=== PATIENT | female | born 1945 | race Caucasian/White ===

== ENCOUNTER → 2018-12-17 | Outpatient (CLI) | payer MEDICARE, OTHER ==
--- NOTE | 2018-12-17 10:02 | KCIC ---
MRI Brain without contrast History: Neuralgia/neuritis, burning pain of the tongue for many years now in the forehead Technique: Multiplanar, multisequential noncontrast MR imaging was performed of the brain. Comparison: None Findings: There is some motion degradation. There is no evidence of recent infarct or cytotoxic edema. Anterior size within normal limits. Cerebral volume is within normal limits. There is no significant hemosiderin deposition of the brain parenchyma.There is no significant midline shift, intraaxial mass effect, or focal abnormal extra-axial fluid collection. There are multiple scattered small foci of T2 and FLAIR hyperintense signal abnormality of the supratentorial parenchyma bilaterally, overall [id number] signal abnormality present. There is preservation of the major intracranial flow-voids at the skull base. There is minimal patchy fluid and thickening of the left mastoid air cells.The cerebellar tonsils are normal in location. There is no significant abnormality of the pineal gland. There is mild ethmoid air cell mucosal thickening greater on the left, also minimally of the frontal sinus. There is mild left maxillary sinus mucosal thickening. There has been lens surgery bilaterally. There is mild increased CSF signal of the optic nerve sheaths anteriorly bilaterally. Pituitary gland is small. There is preserved marrow signal of the clivus. Impression: 1. There is scattered T2 and FLAIR hyperintense signal abnormality of the supratentorial parenchyma bilaterally. Nonspecific findings are most commonly due to chronic microvascular ischemic disease in a patient this age. Pattern is not particularly suggestive of an inflammatory demyelinating disease and less common in a patient this age. Electronically signed by: Ko Rowley MD (12/17/2018 9:59 AM) [facility]
== END | disposition home or self-care (01) ==
LOC: KCIC MRI 09:08
PROVIDERS: ATTEND Psychiatry & Neurology Neurology with Special Qualifications in Child Neurology
DX: I67.82 Cerebral ischemia (principal); M79.2 Neuralgia and neuritis, unspecified
CPT/HCPCS: 70551

== ENCOUNTER 2021-07-04 18:09 | Emergency (ER) | payer MEDICARE, OTHER ==
[~2021-07-04] VITALS: Ht 162.6 cm; Wt 68.1 kg
--- NOTE | 2021-07-04 18:28 | PHYS DOC ---
Past Medical History Past Medical History: Anxiety, High Cholesterol General Adult HPI: HPI: Patient is a 75 year old female with history of high cholesterol, anxiety, who presents to the ED today complaining of an anxiety attack. Patient states for the last 2 to 3 weeks she has had anxiety attacks with shortness of breath. She states she has been following up with her PCP and she is currently on Xanax 0.5 mg. She states she has taken 3 doses today but she still feels anxious and SOA. Denies any chest pain, denies any headache coughing or congestion. Denies any suicidal homicidal ideations. Review of Systems: Review of Systems: Constitutional: Denies fever or chills. [] Eyes: Denies change in visual acuity. [] HENT: Denies nasal congestion or sore throat. [] Respiratory: Reports shortness of breath Cardiovascular: Denies chest pain or edema. [] GI: Denies abdominal pain, nausea, vomiting, bloody stools or diarrhea. [] : Denies dysuria. [] Musculoskeletal: Denies back pain or joint pain. [] Integument: Denies rash. [] Neurologic: Denies headache, focal weakness or sensory changes. [] Psychiatric: Reports anxiety Heart Score: C/O Chest Pain: N/A Risk Factors: Risk Factors: DM, Current or recent (<one month) smoker, HTN, HLP, family history of CAD, obesity. Risk Scores: Score 0 - 3: 2.5% MACE over next 6 weeks - Discharge Home Score 4 - 6: 20.3% MACE over next 6 weeks - Admit for Clinical Observation Score 7 - 10: 72.7% MACE over next 6 weeks - Early Invasive Strategies Physical Exam: PE: Constitutional: Well developed, well nourished, no acute distress, non-toxic appearance. [] HENT: Normocephalic, atraumatic, bilateral external ears normal, oropharynx moist, no oral exudates, nose normal. [] Eyes: PERRLA, EOMI, conjunctiva normal, no discharge. [] Neck: Normal range of motion, no tenderness, supple, no stridor. [] Cardiovascular:Heart rate regular rhythm, no murmur [] Lungs & Thorax: Bilateral breath sounds clear to auscultation [] Abdomen: Bowel sounds normal, soft, no tenderness, no masses, no pulsatile masses. [] Skin: Warm, dry, no erythema, no rash. [] Back: No tenderness, no CVA tenderness. [] Extremities: No tenderness, no cyanosis, no clubbing, ROM intact, no edema. [] Neurologic: Alert and oriented X 3, normal motor function, normal sensory function, no focal deficits noted. [] Psychologic: Affect normal, judgement normal, mood normal. [] EKG: EK interpreted by Dr. Fuller sinus rhythm heart rate 69 no STEMI Radiology/Procedures: Radiology/Procedures: [] Course & Med Decision Making: Course & Med Decision Making Pertinent Labs and Imaging studies reviewed. (See chart for details) This is a 75-year-old female patient presenting to the ED today complaining of anxiety with shortness of breath, symptoms of been going on for 3 weeks. She states she has been seen by her PCP and is on Xanax Dragon Disclaimer: Dragon Disclaimer: This electronic medical record was generated, in whole or in part, using a voice recognition dictation system. Departure Departure Impression: Primary Impression: Anxiety Additional Impression: UTI (urinary tract infection) Qualified Codes: N39.0 - Urinary tract infection, site not specified Disposition: HOME / SELF CARE / HOMELESS Condition: STABLE Referrals: NON,STAFF (PCP) Follow up with your doctor as soon as you can Patient Instructions: Anxiety and Panic Attacks, Urinary Tract Infection Additional Instructions: You were evaluated in the emergency room for anxiety. Your work-up in the emergency room is negative for any acute findings, you have a UTI. Please take the prescribed antibiotics until completed. Contact your doctor tomorrow about your anxiety. Come back to the ED at any point symptoms worsen Scripts Cephalexin (CEPHALEXIN) 500 Mg Tablet 1 TAB PO BID, #14 TAB Prov: SHERITA BYRD APRN 07/04/21 SHERITA BYRD APRN July 04, 2021 18:28
[2021-07-04 18:38] LABS: BASO # 0.1 x10^3/uL (0.0-0.2); BASO % 1 % (0-3); EOS # 0.1 x10^3/uL (0.0-0.7); EOS % 1 % (0-3); HEMOGLOBIN 11.4 g/dL (12.0-15.5); LYMPH # 2.4 x10^3/uL (1.0-4.8); LYMPH % 33 % (24-48); MEAN CORPUSCULAR HEMOGLOBIN 29 pg (25-35); MEAN CORPUSCULAR HGB CONC 33 g/dL (31-37); MEAN CORPUSCULAR VOLUME 86 fL (79-100); MONO # 0.4 x10^3/uL (0.0-1.1); MONO % 5 % (0-9); NEUT # 4.3 x10^3/uL (1.8-7.7); NEUT % 60 % (31-73); PLATELET COUNT 291 x10^3/uL (140-400); RED BLOOD COUNT 3.96 x10^6/uL (3.50-5.40); RED CELL DISTRIBUTION WIDTH 13.7 % (11.5-14.5); WHITE BLOOD COUNT 7.2 x10^3/uL (4.0-11.0)
[2021-07-04 18:59] LABS: CALCIUM 9.6 mg/dL (8.5-10.1); CREATININE 1.2 mg/dL (0.6-1.0); GFR 43.6; POTASSIUM 4.2 mmol/L (3.5-5.1)
[2021-07-04 19:05] LABS: ALBUMIN/GLOBULIN RATIO 1.2 (1.0-1.7); MAGNESIUM 1.9 mg/dL (1.8-2.4); TOTAL BILIRUBIN 0.3 mg/dL (0.2-1.0); TOTAL PROTEIN 7.3 g/dL (6.4-8.2)
--- NOTE | 2021-07-04 19:58 | RAD ---
Exam: Chest one view INDICATION: Short of air, pain TECHNIQUE: Frontal view of the chest Comparisons: None FINDINGS: Heart is mildly enlarged pulmonary vessels are within normal limits. The lung and pleural spaces are clear. IMPRESSION: No acute cardiopulmonary process. Electronically signed by: Stephanie Lion MD (07/04/2021 7:55 PM) [facility]
[2021-07-04 20:51] LABS: BARBITURATES NEG (NEG); BENZODIAZEPINES POS (NEG); CANNABINOIDS NEG (NEG); COCAINE NEG (NEG); METHADONE NEG (NEG); OPIATES POS (NEG); PHENCYCLIDINE NEG (NEG)
[2021-07-04 20:53] LABS: AMPHETAMINE/METHAMPHETAMINE NEG (NEG)
[2021-07-04 21:00] LABS: BACTERIA,URINE FEW /HPF (0-FEW); RBC,URINE 0 /HPF (0-2)
[2021-07-04 21:45] VITALS: BP 133/63
[2021-07-04] MEDS ORDERED: CEPH500T PO (22:05)
[2021-07-04] MEDS ORDERED: cefTRIAXone IV Push 1 GM VIAL. IVP ONE (22:30)
--- NOTE | 2021-07-05 08:09 | EKG ---
[facility] [address] [place] [address] Test Date: 2021-07-04 Test Time: 18:20:10 Pat Name: TEVIN GAMBLE Department: Room: Gender: [employer]: : 1945 Requested By: SHERITA BYRD Order Number: [id number] Reading MD: Weston Oliveira MD Measurements Intervals [place] Rate: 69 P: NE: QRS: -19 QRSD: 82 T: 21 QT: 406 QTc: 441 Interpretive Statements SR NON-SPECIFIC ST/T CHANGES Electronically Signed On 07-09-2021 9:08:57 CDT by Weston Oliveira MD
== END 2021-07-04 22:13 | disposition home or self-care (01) ==
LOC: ER 18:09
DX: N39.0 Urinary tract infection, site not specified (principal); F41.9 Anxiety disorder, unspecified; R06.02 Shortness of breath; E78.00 Pure hypercholesterolemia, unspecified
CPT/HCPCS: 36415; 71045; 80053; 80307; 81001; 83735; 83880; 84443; 84484; 85025; 87086; 93005; 96374; 99285; J2060